=== PATIENT | female | born 1960 | race Caucasian/White ===

== ENCOUNTER 2025-04-17 06:12 | Inpatient (IN) | payer MEDICARE, OTHER, SELFPAY ==
[2025-04-12 09:46] VITALS: BMI 28.6
[2025-04-12 10:09] LABS: % Basophils 0.5 % (0-2); % Eosinophils 1.6 % (0-6); % Immature Granulocytes 0.3 % (0-0.5); % Lymphocytes 18.2 % (20.5-51.1); % Monocytes 5.7 % (1.7-9.3); % Neutrophils 73.7 % (42.2-75.2); Absolute Eosinophils 0.1 10^3/uL (0-0.7); Absolute Lymphocytes 1.3 10^3/uL (1.2-3.4); Absolute Monocytes 0.4 10^3/uL (0.1-0.6); Absolute Neutrophils 5.4 10^3/uL (1.4-6.5); Hematocrit 40.5 % (37.0-47.0); Hemoglobin 13.5 g/dL (12.0-16.0); Mean Corp Hgb Conc. 33.3 g/dL (33.0-37.0); Mean Corpuscular Hgb 31.6 pg (27.0-31.0); Mean Corpuscular Volume 94.8 fL (81.0-99.0); Nucleated Red Blood Cells % 0 %; Platelet Count 255 10^3/uL (130-400); Red Blood Cell Count 4.27 10^6/uL (4.20-5.40); Red Cell Dist. Width 13.2 % (11.5-14.5); White Blood Cell Count 7.4 10^3/uL (4.8-10.8)
[2025-04-12 10:21] LABS: INR 0.91; PT 12.7 Sec (11.4-14.6)
[2025-04-12 11:24] LABS: Blood Urea Nitrogen 20 mg/dl (7-17); Carbon Dioxide 25 mmol/L (22-30); Chloride 107 mmol/L (98-107); Estimated Creatinine Clearance 73 ml/min; Glucose 116 mg/dl (70-99); Potassium 4.6 mmol/L (3.5-5.1); Sodium 141 mmol/L (135-145); eGFR > 60.00
--- NOTE | 2025-04-13 16:16 | PTCARENOTE ---
Abnormal ECG done 04/12/[address] Hughes, no further interventions requested.
[2025-04-17] VITALS (17 sets, daily range): BP systolic 97–214; BP diastolic 59–91
[2025-04-17] MEDS: PERIDEX 0.12% ORAL RINSE 15 ML PO (06:57)
[2025-04-17] MEDS: BACTROBAN NASAL 1 GRAM NASAL (06:57)
[2025-04-17 07:20] LABS: Glucose - Point of Care 114 mg/dl (70-99)
[2025-04-17] MEDS: NSS 500 IV (07:25)
--- NOTE | 2025-04-17 08:20 | W.SUR.PREOP ---
Pre-Operative Surgical Note
-
I have examined this patient prior to the performance of the scheduled procedure.
The patient's condition is unchanged from the time of the current History and
Physical and the patient is able to undergo the scheduled procedure.
[2025-04-17 10:33] LABS: ACT-LR - POC 226 Seconds (116-155)
[2025-04-17 11:39] LABS: Glucose - Point of Care 124 mg/dl (70-99)
[2025-04-17] MEDS: ZOFRAN 4 MG IV (12:30)
[2025-04-17] MEDS: NSS 1000 IV (13:16)
--- NOTE | 2025-04-17 13:17 | OR.RPT ---
Operative Report
Operative Report
Date of Operation: 04/17/2025
Pre Op Diagnosis:
1. Debilitating left lower extremity claudication
2. Occluded left iliac stents
3. Prior kissing aortoiliac stents at outside hospital
4. Failed/thrombosed femorofemoral bypass from outside hospital
Post Op Diagnosis:
1. Debilitating left lower extremity claudication
2. Occluded left iliac stents
3. Prior kissing aortoiliac stents at outside hospital
4. Failed/thrombosed femorofemoral bypass from outside hospital
Procedure:
1.) Cutdown and exposure of left proximal superficial femoral artery for endovascular intervention (primary repair)
2.) Mechanical arterial thrombectomy of left common and external iliac artery stents using Penumbra Lightening [place] 7 Catheter
3.) Intravascular lithotripsy to left external iliac artery and common femoral artery calcified stenosis (6 mm x 60 mm M5+ shockwave balloon)
4.) Balloon angioplasty and stenting of left common iliac artery and left external iliac artery (overlapping 8 mm x 59 mm, 7 mm x 59 mm and 7 mm x 59 mm [place] VBX stents)
5.) Diagnostic aortobiiliac arteriogram
6.) Diagnostic left lower extremity arteriogram
Surgeon: Isaías Luna III, MD
Lead Programmer: Kirit Fernandez MD, PGY5
Anesthesia: Sedation with local
Fluoroscopy:
41 min
1330 mGy
211.38 gy.cm2
Complications: None
Estimated Blood Loss: 250 cc
History and Indications for Procedure: 64-year-old female with prior femorofemoral bypass and kissing aortoiliac stents performed at an outside hospital. She developed debilitating lower extremity claudication. Cross-sectional imaging demonstrated
occluded left iliac stents with what appeared to be a calcified plaque in the distal left external iliac artery. She was taken to the operating room for endovascular revascularization.
Procedure in Detail: Amna Rivera was correctly identified and placed supine on the operating table. After adequate induction of anesthesia the bilateral groins and proximal left thigh were prepped and draped in the usual sterile fashion. A timeout
was performed with the nursing and anesthesia staff confirming the patient's identity as well as the nature and laterality of the procedure.
The left common femoral artery and proximal superficial femoral artery were identified under ultrasound guidance. An appropriate incision was then marked at the skin over the proximal superficial femoral artery. The incision was made with a
scalpel. Electrocautery and sharp dissection were used to expose the proximal superficial femoral artery. Proximal and distal control was obtained with vessel loops. Under direct visualization the proximal superficial femoral artery was punctured
in a retrograde fashion using a micropuncture needle. We then upsized to a 5 [place] sheath over a [place] wire.
ENDOVASCULAR INTERVENTION: Systemic heparin was administered. Using a Glidewire and Quickcross catheter we navigated retrograde through the common femoral artery and then the occluded stents. The wire and catheter were advanced into the abdominal
aorta. An aortogram was then performed through the [place] catheter demonstrating patency of the abdominal aorta and right iliac stents. The left iliac stents were patent for a short stump but then occluded thereafter. A retrograde arteriogram
through the 5 [place] sheath demonstrated patency of the common femoral artery but the iliac stents were occluded. There was a significant calcified stenosis at the distal left external iliac artery. This was also seen on preoperative CT angiogram.
Through the Quickcross catheter I exchanged out for a 1 cm floppy tip Amplatz wire which was placed in the abdominal aorta. I upsized to a 7 [place] 23 cm sheath. In an effort to establish a flow lumen and debulk the occluded iliac stents I passed
the Penumbra Lightening [place] 7 catheter retrograde through the 7 [place] sheath over the Amplatz wire. There was some significant resistance in the mid external iliac artery. I therefore removed the Penumbra catheter and predilated this area with a
4 mm and then a 5 mm angioplasty balloon. Subsequent to this I was able to pass the Penumbra catheter retrograde through the entire length of the external iliac and common iliac stents up to the origin. Several passes were made. Subsequent
arteriogram demonstrated a patent flow lumen through the iliac stents at this point. Following this I focused my attention on the calcified plaque and stenosis at the distal external iliac artery/common femoral artery interface. I exchanged out
for a 0.014 wire. Due to the calcified nature of the distal external iliac artery/proximal common femoral artery disease and in an effort to modify the calcium to achieve maximum luminal gain with endovascular intervention I elected to proceed with
intravascular lithotripsy. A 6 mm x 60 mm Shockwave balloon was placed across the stenosis under roadmap guidance. Alternating rounds of lithotripsy pulse delivery at sub-nominal pressure and angioplasty at nominal pressure was performed across the
stenosis. In between rounds of pulse delivery and angioplasty the balloon was deflated and repositioned under roadmap guidance. All 300 pulses were delivered.
Following this I then realigned the entire length of the existing iliac artery stents with overlapping [place]n VBX balloon mounted stents. The 0.014 wire was exchanged out for the floppy tip Amplatz wire. An 8 mm x 59 mm [place] VBX stent was positioned
and deployed proximally in the left common iliac artery stent. I then extended distally with 2 overlapping 7 mm x 59 mm Vaughn VBX stents. Each of the stents was positioned and deployed in the desired location. There was significant resistance to
full balloon/stent expansion in the external iliac artery on initial deployment. I then followed this with a high pressure 6 mm x 60 mm Clay balloon angioplasty. The balloon was used to post dilate both 7 mm VBX stents in the external iliac
artery. Multiple inflations were performed at rated burst pressure in an effort to achieve better stent expansion. I then followed this with a 7 mm x 60 mm [employer] balloon and treated the external iliac artery stents at rated burst
pressure. Multiple inflations were performed. With this approach we were able to achieve additional luminal gain.
Subsequent arteriogram demonstrated a significantly improved result compared to pre-treatment. The left iliac stents were now patent with brisk flow. The common iliac stents were widely patent. There was some residual stenosis in the external
iliac artery stents from extrinsic plaque. Brisk outflow was demonstrated from the iliac stents. The distal [place] external iliac artery and common femoral artery were patent with no significant residual stenosis. No evidence of dissection or
filling defects were identified.
Satisfied with this result we concluded the procedure. The 7 [place] sheath was removed from the proximal superficial femoral artery. There was brisk pulsatile inflow bleeding coming from the puncture site. The vessel loops were secured. The
arteriotomy was repaired primarily with 3 interrupted 6-0 Prolene sutures. The vessel loops were released. There was an easily palpable pulse within the exposed superficial femoral artery. The suture line was closely inspected for hemostasis
which was achieved. The wound was irrigated with saline solution. Hemostasis was achieved in the wound bed and then closed in multiple layers. Sterile skin glue was applied.
The patient tolerated the procedure well and was taken to the recovery area in stable condition. She had a palpable dorsalis pedis pulse at the conclusion of the case.
Attestation: I was present and responsible for the entire procedure.
Signed:
Isaías Luna III, MD
Vascular Surgery
[facility]
[2025-04-17] MEDS: ROXICODONE 5 MG PO ×2 (15:17→20:28)
--- NOTE | 2025-04-17 15:36 | PTCARENOTE ---
Pt received from PACU. AAOx3. L groin incision approximated with surgical adhesive present. Site slightly ecchymotic and small hematoma noted upon palpitation. Vascular surgery aware. LLE pulses weak but palpable. Pt endorses full sensation of LLE.
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 VSS. Pt ordered bedrest at this time with HOB below 30 degrees. IVF infusing per order. Assessment documented. Pt in bed with call laurent in reach.
[2025-04-17] MEDS: COMPAZINE 5 MG IV (16:12)
[2025-04-17] MEDS: XARELTO 2.5 MG PO (20:22)
[2025-04-17 21:24] LABS: Glucose - Point of Care 162 mg/dl (70-99)
[2025-04-18 03:05] VITALS: BP 112/60
[2025-04-18 06:00] VITALS: BMI 28.5
[2025-04-18 07:35] VITALS: BP 105/69
[2025-04-18 07:40] LABS: Glucose - Point of Care 114 mg/dl (70-99)
[2025-04-18 07:56] LABS: Blood Urea Nitrogen 15 mg/dl (7-17); Calcium 9.3 mg/dl (8.4-10.2); Carbon Dioxide 22 mmol/L (22-30); Chloride 110 mmol/L (98-107); Estimated Creatinine Clearance 73 ml/min; Glucose 103 mg/dl (70-99); Sodium 141 mmol/L (135-145); eGFR > 60.00
[2025-04-18] MEDS: VITAMIN D3 (cholecalciferol) 25 MCG PO (08:02)
[2025-04-18] MEDS: XARELTO 2.5 MG PO (08:02)
[2025-04-18] MEDS: FIBERCON 625 MG PO (08:02)
[2025-04-18] MEDS: PLAVIX 75 MG PO (08:02)
[2025-04-18] MEDS: CRESTOR 20 MG PO (08:02)
[2025-04-18] MEDS: PLETAL 100 MG PO (08:03)
[2025-04-18] MEDS: TOPROL XL 100 MG PO (08:03)
[2025-04-18] MEDS: GLUCOPHAGE 500 MG PO (08:03)
--- NOTE | 2025-04-18 08:25 | W.PN.VS ---
Addendum entered and electronically signed by JO Odom 04/18/25 15:11:
Late entry physical exam with palpable left DP pulse, foot warm. Reviewed subjective and objective data and plan with Dr. Isaías Luna III, who agrees with plan.
Original Note:
Today's Communication / Plan
-
See below.
Assessment/Plan
-
Assessment: 64-year-old female POD #1 Cutdown and exposure of left proximal superficial femoral artery for endovascular intervention (primary repair), mechanical arterial thrombectomy of left common and external iliac artery stents using Penumbra
Lightening [place] 7 Catheter, intravascular lithotripsy to left external iliac artery and common femoral artery calcified stenosis (6 mm x 60 mm M5+ shockwave balloon), balloon angioplasty and stenting of left common iliac artery and left external
iliac artery (overlapping 8 mm x 59 mm, 7 mm x 59 mm and 7 mm x 59 mm [place] VBX stents), diagnostic aortobiiliac arteriogram, diagnostic left lower extremity arteriogram
Plan:
OOB to chair with progression of ambulation as tolerated
Patient is on a fixed income and insurance coverage of Xarelto is to costly, will likely switch patient back to DAPT of aspirin 81 mg p.o. daily and Plavix 75 mg p.o. daily for medical management of peripheral arterial disease
Possible discharge later this afternoon
Subjective Data
-
Date of Service: April 18, 2025
Patient seen and examined at bedside, offers no complaints. Endorses left groin surgical cutdown site pain much improved from yesterday and no longer sore to touch, well-managed postoperative pain. Endorses eagerness for discharge to home. Denies
nausea, vomiting, fever, and chills. Did review with patient yesterday adding Xarelto 2.5 mg p.o. twice daily to her medication regimen in order to optimize her medical management of peripheral arterial disease. Patient endorses that she is on a
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
Objective Data
-
Vital Signs
Temp Pulse Resp BP Pulse Ox
98.5 F 73 16 105/69 96
04/18/25 07:35 04/18/25 08:03 04/18/25 07:35 04/18/25 08:03 04/18/25 07:35
Intake and Output
04/17/25 04/18/25 04/19/25
06:59 06:59 06:59
Intake Total 580 / 580
Output Total 125 / 125
Balance 455 / 455
Intake:
Oral fluids 480 / 480
IV fluids (Total) 100 / 100
NSS 100 / 100
Output:
Urine, Voided 125 / 125
Other:
Number of approximated MODERATE 1
amounts of urine
Number of approximated LARGE 1
amounts of urine
How many times incontinent 2
SATURATED amount urine
Lab Results
04/18/25 06:37
Calcium 9.3 mg/dl (8.4-10.2) 04/18/25 06:37
Physical Exam
-
No apparent distress, resting in bed comfortably
No tachycardia
No dyspnea on room air
ABD flat, nontender, nondistended
Left groin cutdown site, clean dry and intact, small area of hematoma appreciated on exam postoperative yesterday now completely resolved, all surrounding areas soft
[2025-04-18 08:28] LABS: Hematocrit 30.7 % (37.0-47.0); Hemoglobin 10.3 g/dL (12.0-16.0); Mean Corp Hgb Conc. 33.6 g/dL (33.0-37.0); Mean Corpuscular Hgb 31.8 pg (27.0-31.0); Mean Corpuscular Volume 94.8 fL (81.0-99.0); Mean Platelet Volume 9.3 fL (7.4-10.4); Platelet Count 244 10^3/uL (130-400); Red Blood Cell Count 3.24 10^6/uL (4.20-5.40); Red Cell Dist. Width 13.4 % (11.5-14.5); White Blood Cell Count 9.5 10^3/uL (4.8-10.8)
--- NOTE | 2025-04-18 10:03 | CM ---
CM following re: discharge planning.
Reviewed pt's chart, met with pt.
Pt is a 64 year old female, admitted with primary dx of POD #1 Cutdown and exposure of left proximal superficial femoral artery for endovascular intervention (primary repair). per vascular surgery pt most likely will be discharged hoe m this
afternoon. Pt is aware and she stated her boyfriend will transport home. IMM reviewed, placed on chart, pt has a copy.
Pt reports she lives with son in an in-law suite, 8 steps to enter, has 2 supportive children. 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
PCP: René Campbell
Pharmacy: [facility]
D/C plan: home no needs. Boyfriend to transport.
[2025-04-18 11:10] VITALS: BP 120/64
[2025-04-18 11:16] LABS: Glucose - Point of Care 146 mg/dl (70-99)
--- NOTE | 2025-04-18 12:11 | W.[place]-PDMP ---
[place]-PD[place]
-
Checked the [place]- Prescription Drug Monitoring Program website, no red flags identified; safe to proceed with prescription.
--- NOTE | 2025-04-18 12:11 | W.DS.TRANS ---
DC Summary - [employer]
-
Discharge Instructions:
Discharge Diagnosis/Procedures Diagnosis:
1. Debilitating left lower extremity
claudication
2. Occluded left iliac stents
3. Prior kissing aortoiliac stents at outside
hospital
4. Failed/thrombosed femorofemoral bypass from
outside hospital
Procedure:
1.)Cutdown and exposure of left proximal
superficial femoral artery for endovascular
intervention (primary repair)
2.) Mechanical arterial thrombectomy of left
common and external iliac artery stents using
Penumbra Lightening [place] 7 Catheter
3.) Intravascular lithotripsy to left external
iliac artery and common femoral artery calcified
stenosis (6 mm x 60 mm M5+ shockwave balloon)
4.) Balloon angioplasty and stenting of left
common iliac artery and left external iliac
artery (overlapping 8 mm x 59 mm, 7 mm x 59 mm
and 7 mm x 59 mm [place] VBX stents)
5.) Diagnostic aortobiiliac arteriogram
6.) Diagnostic left lower extremity arteriogram
Diet As tolerated
Activity No strenuous activity
Driving Restrictions No driving for 2 weeks
Bathing Restrictions OK to Shower
Instructions:
Stand-Alone Forms: Vascular Surg Discharge Instr
Changes to Home Medications: Yes
Discharge Medications:
DC Medications w/original date entered in [employer]
alprazolam 0.25 mg tablet (Xanax) 0.25 mg PO PRN PRN anxiety 04/10/25
Held on 04/18/25. Instructions: Do not take if you are requiring prescribed narcotic pain medication, you may resume if you are no longer taking any narcotic for postoperative pain management.
aspirin 81 mg tablet,delayed release 81 mg PO DAILY Blood Clot Prevention/Tx 04/10/25
cholecalciferol (vitamin D3) 25 mcg (1,000 unit) tablet (Vitamin D3) 25 mcg PO DAILY Supplement 04/10/25
cilostazol 100 mg tablet 100 mg PO DAILY Blood Clot Prevention/Tx 04/10/25
clopidogrel 75 mg tablet 75 mg PO DAILY Blood Clot Prevention/Tx 04/10/25
fiber 1 tab PO DAILY Constipation 04/10/25
metformin 500 mg tablet 500 mg PO DAILY Diabetes 04/10/25
Held on 04/18/25. Instructions: Resume on 04/21/25.
metoprolol succinate 100 mg tablet,extended release 24 hr 100 mg PO DAILY Blood Pressure 04/10/25
rosuvastatin 20 mg tablet 20 mg PO DAILY High Cholesterol 04/10/25
oxycodone 5 mg tablet 5 mg PO Q6HPRN PRN moderate pain #5 tabs 04/18/25
Home Medication Changes
metformin 500 mg tablet 500 mg PO DAILY Diabetes 04/10/25
Held on 04/18/25. Instructions: Resume on 04/21/25.
alprazolam 0.25 mg tablet (Xanax) 0.25 mg PO PRN PRN anxiety 04/10/25
Held on 04/18/25. Instructions: Do not take if you are requiring prescribed narcotic pain medication, you may resume if you are no longer taking any narcotic for postoperative pain management.
Added small supply for as needed pain management:
oxycodone 5 mg tablet 5 mg PO Q6HPRN PRN moderate pain #5 tabs 04/18/25
Pending Results: No
--- NOTE | 2025-04-18 13:23 | PN.CDI ---
CDI
- -
CDI:
Physician Documentation Request
Admit Date: 04/17/25 06:12
Dear JO Colon,
Please review the following and provide your response in the progress notes.
Clinical Indicators:
04/17
Procedure:
1.) Cutdown and exposure of left proximal superficial femoral artery for endovascular intervention (primary repair)
Estimated Blood Loss: 250 cc
PN, 04/18
#...POD #1 Cutdown and exposure of left proximal superficial femoral artery f
#...or endovascular intervention (primary repair),
Laboratory Tests
04/12/25 04/18/25
09:59 06:37
Hgb 13.5 10.3 L D
Based on the above and your clinical assessment, please clarify the most likely diagnosi/condition evaluated, monitored and/or treated?
Acute blood loss anemia
Abnormal lab value, clinically insignificant
Other(please specify)
Use of terms such as suspected, likely, concern for, or probable (associated with a specific diagnosis that is being evaluated, monitored, or treated as if it exists) are acceptable and can be coded in the inpatient setting, when documented at the
time of discharge.
Thank you,
Julia Holguin RN BSN CCDS
CDI Specialist
Please contact via tiger text
Please use your independent medical judgment in providing your response.
--- NOTE | 2025-04-18 13:39 | W.PN.UPDATE ---
Update Note
Progress Note Update
Clinical Indicators:
04/17
Procedure:
1.) Cutdown and exposure of left proximal superficial femoral artery for endovascular intervention (primary repair)
Estimated Blood Loss: 250 cc
PN, 04/18
#...POD #1 Cutdown and exposure of left proximal superficial femoral artery f
#...or endovascular intervention (primary repair),
Laboratory Tests
04/12/25 04/18/25
09:59 06:37
Hgb 13.5 10.3 L D
Based on the above and your clinical assessment, please clarify the most likely diagnosis/condition evaluated, monitored and/or treated?
Acute blood loss anemia in the intraoperative setting suspected from penumbra suctioning leading to EBL of roughly 250 mL, also likely attributing to decreased hemoglobin is hemodilution with adequate hydration via IV fluids postoperatively. No
suspicion for postoperative blood loss given completely soft compartments around cutdown site and stable vital signs.
== END 2025-04-18 13:01 | disposition home or self-care (01) | DRG 271 ==
LOC: 2 SOUTH 06:12
PROVIDERS: Nurse Practitioner; ADMITTING PHYSICIAN Surgery Vascular Surgery; PRIMARYCARE PHYSICIAN Family Medicine
PROC: X2CT3T7 Extirpation of Matter from Left Lower Extremity Artery using Computer-aided Mechanical Aspiration, Percutaneous Approach, New Technology Group 7 (ICD-10-PCS; 2025-04-17)
PROC: 04FL3ZZ Fragmentation of Left Femoral Artery, Percutaneous Approach (ICD-10-PCS; 2025-04-17)
PROC: 047J3DZ Dilation of Left External Iliac Artery with Intraluminal Device, Percutaneous Approach (ICD-10-PCS; 2025-04-17)
PROC: 04FJ3ZZ Fragmentation of Left External Iliac Artery, Percutaneous Approach (ICD-10-PCS; 2025-04-17)
PROC: B4101ZZ Fluoroscopy of Abdominal Aorta using Low Osmolar Contrast (ICD-10-PCS; 2025-04-17)
PROC: B41C1ZZ Fluoroscopy of Pelvic Arteries using Low Osmolar Contrast (ICD-10-PCS; 2025-04-17)
PROC: 047D3DZ Dilation of Left Common Iliac Artery with Intraluminal Device, Percutaneous Approach (ICD-10-PCS; 2025-04-17)
PROC: B41G1ZZ Fluoroscopy of Left Lower Extremity Arteries using Low Osmolar Contrast (ICD-10-PCS; 2025-04-17)
DX: I70.212 Atherosclerosis of native arteries of extremities with intermittent claudication, left leg (principal); D62 Acute posthemorrhagic anemia; T82.898A Other specified complication of vascular prosthetic devices, implants and grafts, initial encounter; Y83.1 Surgical operation with implant of artificial internal device as the cause of abnormal reaction of the patient, or of later complication, without mention of misadventure at the time of the procedure; I70.8 Atherosclerosis of other arteries; I10 Essential (primary) hypertension; E78.00 Pure hypercholesterolemia, unspecified; Z79.82 Long term (current) use of aspirin; Z79.02 Long term (current) use of antithrombotics/antiplatelets; Z79.84 Long term (current) use of oral hypoglycemic drugs; Z82.3 Family history of stroke; Z83.3 Family history of diabetes mellitus; Z82.49 Family history of ischemic heart disease and other diseases of the circulatory system
CPT/HCPCS: 34201; 36415; 75625; 75710; 80048; 82803; 82962; 85025; 85027; 85610; 85730; 86850; 86900; 86901; 93005; C1725; C1769; C1894; C9765; Q9967

== ENCOUNTER → 2025-06-05 07:14 | Outpatient (REF) | payer MEDICARE, OTHER, SELFPAY | LOC: RAD 07:14 | PROVIDERS: ATTENDING PHYSICIAN Registered Nurse; FAMILY PHYSICIAN Family Medicine | DX: I77.9 Disorder of arteries and arterioles, unspecified (principal); I70.213 Atherosclerosis of native arteries of extremities with intermittent claudication, bilateral legs; I77.1 Stricture of artery | CPT/HCPCS: 93922; 93925; 93978 ==

== ENCOUNTER → 2025-08-07 08:37 | Outpatient (REF) | payer MEDICARE, OTHER, SELFPAY | LOC: HWRCS 08:37 | PROVIDERS: ATTENDING PHYSICIAN Student in an Organized Health Care Education/Training Program; FAMILY PHYSICIAN Family Medicine | DX: R06.02 Shortness of breath (principal) | CPT/HCPCS: 71046; 93306 ==

== ENCOUNTER → 2025-08-15 07:04 | Outpatient (REF) | payer MEDICARE, OTHER, SELFPAY | LOC: HWRCS 07:04 | PROVIDERS: ATTENDING PHYSICIAN Student in an Organized Health Care Education/Training Program; FAMILY PHYSICIAN Family Medicine | DX: R06.02 Shortness of breath (principal) | CPT/HCPCS: 78452; 93017; A9500; J2785 ==

== ENCOUNTER → 2025-08-24 09:29 | Outpatient (REF) | payer MEDICARE, OTHER, SELFPAY | LOC: HWRAD 09:29 | PROVIDERS: ATTENDING PHYSICIAN Student in an Organized Health Care Education/Training Program; FAMILY PHYSICIAN Family Medicine | DX: R93.89 Abnormal findings on diagnostic imaging of other specified body structures (principal) | CPT/HCPCS: 71250 ==